=== PATIENT | female | born 1975 | race Caucasian/White ===

== ENCOUNTER → 2016-11-08 | Outpatient (CLI) | payer OTHER | END | disposition home or self-care (01) | LOC: RAD.S 12:39 | DX: Z12.31 Encounter for screening mammogram for malignant neoplasm of breast (principal); R92.0 Mammographic microcalcification found on diagnostic imaging of breast; N63 Unspecified lump in breast; Z80.3 Family history of malignant neoplasm of breast ==

== ENCOUNTER → 2016-11-22 | Outpatient (CLI) | payer OTHER | END | disposition home or self-care (01) | LOC: RAD.S 11-09 09:27 | DX: R92.8 Other abnormal and inconclusive findings on diagnostic imaging of breast (principal); N63 Unspecified lump in breast; D24.2 Benign neoplasm of left breast ==